=== PATIENT | male | born 1975 | race Caucasian/White ===

== ENCOUNTER → 2016-10-11 | Outpatient (CLI) | payer BC | END | disposition home or self-care (01) | LOC: NUC 13:00 | DX: K81.1 Chronic cholecystitis (principal) | CPT/HCPCS: 78227; A9537; J2270 ==

== ENCOUNTER 2016-11-23 07:49 | Day surgery (SDC) | payer BC ==
[~2016-11-23] VITALS: Ht 170.2 cm; Wt 77.0 kg
[~2016-11-23 07:49] MED LIST: IBUPROFEN400 MG PO
[2016-11-23 08:14] VITALS: BP 125/79
[2016-11-23] MEDS ORDERED: COLACE100 MG PO (11:05)
[2016-11-23] MEDS ORDERED: PERCOCET 5/31 TABLET PO (11:05)
[2016-11-23 12:55] VITALS: BP 136/79
[2016-11-23 14:05] VITALS: BP 114/79
== END 2016-11-23 14:30 | disposition home or self-care (01) ==
LOC: SDC 07:49
PROC: 0FT44ZZ Resection of Gallbladder, Percutaneous Endoscopic Approach (ICD-10-PCS; principal; 2016-11-23)
DX: K80.10 Calculus of gallbladder with chronic cholecystitis without obstruction (principal); K82.4 Cholesterolosis of gallbladder; Z88.0 Allergy status to penicillin; Z85.828 Personal history of other malignant neoplasm of skin; Z80.42 Family history of malignant neoplasm of prostate
CPT/HCPCS: 88304; J0131; J0330; J0744; J1100; J1170; J1885; J2250; J2405; J2710; J3010